=== PATIENT | female | born 1985 | race Caucasian/White ===

== ENCOUNTER 2018-01-26 20:42 | Emergency (ER) | payer SELFPAY ==
[2018-01-26] MEDS ORDERED: Sodium Chloride 0.9% 1,000 ML IV ONE (20:43)
--- NOTE | 2018-01-26 20:44 | EDM.PDOC ---
ED HPI GENERAL MEDICAL PROBLEM - General Stated Complaint: NUMBNESS OF THE BODY Time Seen by Provider: 01/26/18 20:44 Source of Information: Reports: Patient - History of Present Illness INITIAL COMMENTS - FREE TEXT/NARRATIVE: HISTORY AND PHYSICAL: History of present illness: [Patient presents with right unilateral headache consistent with previous migraine, she has a classic aura which includes sometimes blurred vision generally a zigzag Rainbolt pattern of facial and left-sided numbness of her whole body today she has had headache over the last 3 days increasing in severity today she rates maximally 7 out of 10 nonradiating she had experienced bilateral upper extremity numbness and tingling sensation which prompted her visit today No current visual aura or symptoms, numbness/tingling subsided shortly after arrival, headache is improved to a 1 or 2 out of 10 post treatment Stroke score was 0 on arrival however with the complaint of numbness nursing staff had initiated the stroke protocol CT was found to be negative Currently no fever nausea vomiting diarrhea constipation chest pain shortness of breath dizziness or palpitation no bowel or urine symptoms no visual symptoms no numbness stroke score remains 0 Review of systems: As per history of present illness and below otherwise all systems reviewed and negative. Past medical history: As per history of present illness and as reviewed below otherwise noncontributory. Surgical history: As per history of present illness and as reviewed below otherwise noncontributory. Social history: No reported history of drug or alcohol abuse. Family history: As per history of present illness and as reviewed below otherwise noncontributory. Physical exam: HEENT: Atraumatic, normocephalic, pupils reactive, negative for conjunctival pallor or scleral icterus, mucous membranes moist, throat clear, neck supple, nontender, trachea midline. Lungs: Clear to auscultation, breath sounds equal bilaterally, chest nontender. Heart: S1S2, regular, negative for clicks, rubs, or JVD. Abdomen: Soft, nondistended, nontender. Negative for masses or hepatosplenomegaly. Negative for costovertebral tenderness. Pelvis: Stable nontender. Genitourinary: Deferred. Rectal: Deferred. Extremities: Atraumatic, negative for cords or calf pain. Neurovascular unremarkable. Neuro: Awake, alert, oriented. Cranial nerves II through XII unremarkable. Cerebellum unremarkable. Motor and sensory unremarkable throughout. Exam nonfocal. Diagnostics: [CBC CMP UA hCG INR EKG Chest 1 view ] Therapeutics: [ 1 L normal saline bolus Zofran 8 mg IV Toradol 30 mg IV ] Description for Imitrex 100 mg #2 tabs one refill Follow-up and establish primary care Impression: [ migraine headache -improved/resolved] Definitive disposition and diagnosis as appropriate pending reevaluation and review of above. headache Pain Score (Numeric/FACES): 5 - Related Data Allergies Allergy/AdvReac Type Severity Reaction Status Date / Time No Known Allergies Allergy Verified 01/26/18 20:56 Home Meds: Home Meds Levothyroxine [Sythroid] 100 mcg PO DAILY 01/26/18 [History] Spironolactone [Aldactone] 100 mg PO DAILY 01/26/18 [History] metFORMIN HCl [Glucophage] 1,500 mg PO DAILY 01/26/18 [History] ED ROS GENERAL - Review of Systems Review Of Systems: See Below ED EXAM, GENERAL - Physical Exam Exam: See Below Course - Vital Signs Last Recorded V/S: Last Vital Signs Temp 97.2 F 01/26/18 20:45 Pulse 81 01/26/18 21:44 Resp 18 01/26/18 21:44 BP 117/64 01/26/18 21:44 Pulse Ox 100 01/26/18 21:44 - Orders/Labs/Meds Orders: Active Orders 24 hr Category Date Time Status EKG Documentation Completion [RC] STAT Care 01/26/18 20:44 Active Chest 1V Frontal [CR] Stat Exams 01/26/18 20:44 Taken Head wo Cont [CT] Stat Exams 01/26/18 20:43 Taken HCG QUALITATIVE,URINE [URCHEM] Stat Lab 01/26/18 20:43 Ordered UA W/MICROSCOPIC [URIN] Stat Lab 01/26/18 20:43 Ordered Labs: Laboratory Tests 01/26/18 01/26/18 01/26/18 Range/Units 20:38 20:38 20:38 WBC 12.50 H (4.0-11.0) K/uL RBC 4.55 (4.30-5.90) M/uL Hgb 12.2 (12.0-16.0) g/dL Hct 36.5 (36.0-46.0) % MCV 80.2 (80.0-98.0) fL MCH 26.8 L (27.0-32.0) pg MCHC 33.4 (31.0-37.0) g/dL RDW Std Deviation 39.2 (28.0-62.0) fl RDW Coeff of Paul 14 (11.0-15.0) % Plt Count 358 (150-400) K/uL MPV 9.60 (7.40-12.00) fL Neut % (Auto) 51.5 (48.0-80.0) % Lymph % (Auto) 39.4 (16.0-40.0) % [place] % (Auto) 6.0 (0.0-15.0) % Eos % (Auto) 2.9 (0.0-7.0) % Baso % (Auto) 0.2 (0.0-1.5) % Neut # (Auto) 6.4 H (1.4-5.7) K/uL Lymph # (Auto) 4.9 H (0.6-2.4) K/uL [place] # (Auto) 0.8 (0.0-0.8) K/uL Eos # (Auto) 0.4 (0.0-0.7) K/uL Baso # (Auto) 0.0 (0.0-0.1) K/uL Nucleated RBC % 0.0 /100WBC Nucleated RBCs # 0 K/uL INR 0.93 Sodium 139 (136-145) mmol/L Potassium 3.7 (3.5-5.1) mmol/L Chloride 102 (98-107) mmol/L Carbon Dioxide 26.6 (21.0-32.0) mmol/L BUN 13 (7.0-18.0) mg/dL Creatinine 0.9 (0.6-1.0) mg/dL Est Cr Clr Drug Dosing 80.75 mL/min Estimated GFR (MDRD) > 60.0 ml/min Glucose 100 (74-106) mg/dL Calcium 9.7 (8.5-10.1) mg/dL Total Bilirubin 0.2 (0.2-1.0) mg/dL AST 16 (15-37) IU/L ALT 18 (14-63) IU/L Alkaline Phosphatase 90 (46-116) U/L Total Protein 7.3 (6.4-8.2) g/dL Albumin 3.3 L (3.4-5.0) g/dL Globulin 4.0 H (2.0-3.5) g/dL Albumin/Globulin Ratio 0.8 L (1.3-2.8) Meds: Medications Discontinued Medications Generic Name Dose Route Start Last Admin Trade Name Stevenq PRN Reason Stop Dose Admin Sodium Chloride 1,000 mls @ 999 mls/hr 01/26/18 20:43 01/26/18 21:04 Normal Saline IV 01/26/18 21:43 999 mls/hr STAT ONE Administration Ketorolac Tromethamine 30 mg 01/26/18 21:14 01/26/18 21:42 Toradol IVPUSH 01/26/18 21:15 30 mg ONETIME ONE Administration Ondansetron HCl 8 mg 01/26/18 21:14 01/26/18 21:41 Zofran IVPUSH 01/26/18 21:15 8 mg ONETIME ONE Administration Departure - Departure Time of Disposition: 21:58 Disposition: Home, Self-Care 01 Condition: Good Clinical Impression: Migraine - Discharge Information Referrals: PCP,None [Primary Care Provider] - Additional Instructions: Medication as prescribed Return if symptoms persist or worsen Follow-up and establish care with primary care physician [facility] - Primary Care [address] [place] [address] The following information is given to patients seen in the emergency department who are being discharged to home. This information is to outline your options for follow-up care. We provide all patients seen in our emergency department with a follow-up referral. The need for follow-up, as well as the timing and circumstances, are variable depending upon the specifics of your emergency department visit. If you don't have a primary care physician on staff, we will provide you with a referral. We always advise you to contact your personal physician following an emergency department visit to inform them of the circumstance of the visit and for follow-up with them and/or the need for any referrals to a consulting specialist. The emergency department will also refer you to a specialist when appropriate. This referral assures that you have the opportunity for follow-up care with a specialist. All of these measure are taken in an effort to provide you with optimal care, which includes your follow-up. Under all circumstances we always encourage you to contact your private physician who remains a resource for coordinating your care. When calling for follow-up care, please make the office aware that this follow-up is from your recent emergency room visit. If for any reason you are refused follow-up, please contact the [facility] emergency department at and asked to speak to the emergency department charge nurse. - My Orders Last 24 Hours: My Active Orders 01/26/18 20:43 Head wo Cont [CT] Stat HCG QUALITATIVE,URINE [URCHEM] Stat UA W/MICROSCOPIC [URIN] Stat 01/26/18 20:44 EKG Documentation Completion [RC] STAT Chest 1V Frontal [CR] Stat - Assessment/Plan Last 24 Hours: My Active Orders 01/26/18 20:43 Head wo Cont [CT] Stat HCG QUALITATIVE,URINE [URCHEM] Stat UA W/MICROSCOPIC [URIN] Stat 01/26/18 20:44 EKG Documentation Completion [RC] STAT Chest 1V Frontal [CR] Stat
[2018-01-26 21:14] LABS: CHLORIDE,CL 102 mmol/L (98-107); SODIUM,NA 139 mmol/L (136-145)
[2018-01-26] MEDS ORDERED: Ketorolac 30 MG/ML SDV IVPUSH ONE (21:14)
[2018-01-26] MEDS ORDERED: Ondansetron 4 MG/2 ML SDV IVPUSH ONE (21:14)
--- NOTE | 2018-01-27 16:16 | CT ---
EXAM DATE: 01/26/18 PATIENT'S AGE: 32 Patient: YANCI HOLT Facility: [place], [place] Site . Site : 1985 Study: CT Head STROKE PROTOCOL [id number]/17/2018 8:51:17 PM Ordering Physician: Doctor Siu Final Report: INDICATION: Vision changes. Body numbness TECHNIQUE: CT Head without contrast. COMPARISON: None FINDINGS: CSF spaces: Within normal limits for age. Brain parenchyma: The rogers-white differentiation is normal. No sign of mass, hemorrhage, or midline shift. Skull base and calvarium: The visualized paranasal sinuses and mastoid air cells are clear. The visualized orbits are grossly unremarkable. No skull fractures. IMPRESSION: No acute intracranial abnormality. Dictated by Obi Galan MD @ 01/26/2018 9:03:24 PM Please note that all CT scans at this facility use dose modulation, iterative reconstruction, and/or weight-based dosing when appropriate to reduce radiation dose to as low as reasonably achievable. Dictated by: Obi Galan MD @ 01/26/2018 21:03:30 (Electronic Signature) Report Signed by Proxy. [facility] CENTER[facility]ario
--- NOTE | 2018-01-27 16:17 | CR ---
EXAM DATE: 01/26/18 PATIENT'S AGE: 32 Patient: YANCI HOLT Facility: [place], [place] Site . Site : 1985 Study: XRay Chest [id number]/17/2018 8:52:43 PM Ordering Physician: Doctor Siu Final Report: INDICATION: Chest pain. Shortness of breath. TECHNIQUE: Chest 1 view. AP upright. COMPARISON: None FINDINGS: Cardiovascular and mediastinum: Heart size and vasculature are normal in caliber and appearance. Mediastinum is within normal limits. Lungs and pleural space: Lungs are clear. No pleural effusion. No pneumothorax. Bones and soft tissues: No acute findings. IMPRESSION: No acute pulmonary process. Dictated by Obi Galan MD @ 01/26/2018 9:06:10 PM Dictated by: Obi Galan MD @ 01/26/2018 21:06:17 (Electronic Signature) Report Signed by Proxy. SONAL
== END 2018-01-26 22:10 | disposition home or self-care (01) ==
LOC: MW.ED 20:42
DX: G43.909 Migraine, unspecified, not intractable, without status migrainosus (principal)
CPT/HCPCS: 36415; 70450; 71045; 80053; 81001; 81025; 85025; 85610; 93005; 96361; 96374; 96375; 99285; J1885; J2405; J7040; 99283

== ENCOUNTER 2018-02-25 18:31 | Emergency (ER) | payer OTHER ==
[2018-02-25] MEDS ORDERED: Sodium Chloride 0.9% 10 ML Syringe FLUSH PRN (18:42)
[2018-02-25] MEDS ORDERED: Sodium Chloride 0.9% 2.5 ML Syringe FLUSH PRN (18:42)
--- NOTE | 2018-02-25 18:47 | EDM.PDOC ---
<Ana Maria Mejia - Last Filed: 02/25/18 20:05> ED HPI GENERAL MEDICAL PROBLEM - General Chief Complaint: Headache Stated Complaint: MIGRAINE Time Seen by Provider: 02/25/18 18:39 Source of Information: Reports: Patient, Old Records History Limitations: Reports: No Limitations - History of Present Illness INITIAL COMMENTS - FREE TEXT/NARRATIVE: HISTORY AND PHYSICAL: []32-year-old female presents with headache History of Present Illness: []Patient is quite confused and not answering questions appropriately Stating her head hurts Discussed with the her symptoms she does get an aura and have confusion with migraines. Patient took a sumatriptan and experienced difficulty breathing and chest tightness Review of Systems: As per history of present illness and below otherwise all systems reviewed and negative. Past medical history: As per history of present illness and as reviewed below otherwise noncontributory. Surgical history: As per history of present illness and as reviewed below otherwise noncontributory. Social history: No reported history of drug or alcohol abuse. Family history: As per history of present illness and as reviewed below otherwise noncontributory. Physical exam: alert female. Confused. HEENT: Atraumatic, normocehpalic, pupils reactive, negative for conjunctival pallor or scleral icterus, mucous membranes moist, throat clear, neck supple, nontender, trachea midline. Lungs: Clear to auscultation, breath sounds equal bilaterally, chest non tender. Heart: S1S2, regular, negative for clicks, rubs, or JVD. Abdomen: Soft, nondistended, nontender. Negative for masses or hepatossplenmegaly. Negative for costovertebral tenderness. Pelvis: Stable nontender. Genitourinary: Deferred. Rectal: Deferred Extremities: Atraumatic, negative for cords or calf pain. Neurovascular unremarkable. Neuro: Awake, alert, oriented. Cranial nerves II through XII unremarkable. Cerebellum unremarkable. Motor and sensory unremarkable throughout. Exam nonfocal. Have discussed this patient with Dr. Merchant a neurologist in [facility]. He feels that this patient needs an emergent MRI. Have discussed this with the patient and her , who is trying to talk to his insurance company about coverage. I have directed to the patient and her that time is of the essence. Patient has improved in her presents with mild confusion and aphasia Dr. Yarbrough has contacted emergency room physician Dr. Ramírez who has agreed to the recommendation of Dr. Hollins Diagnostics: []Head CT Therapeutics: []Benadryl 25 IV, Compazine 10 mg Toradol 30 mg, Ativan 1 mg Impression: []Atypical migraine Rule out CVA Plan: []Air flight to [facility] Definitive disposition and diagnosis as appropriate pending reevaluation and review of above. Onset: Today, Sudden Location: Reports: Head headache Pain Score (Numeric/FACES): 10 - Related Data Allergies Allergy/AdvReac Type Severity Reaction Status Date / Time No Known Allergies Allergy Verified 02/25/18 18:37 Home Meds: Home Meds Levothyroxine [Sythroid] 100 mcg PO DAILY 01/26/18 [History] Spironolactone [Aldactone] 100 mg PO DAILY 01/26/18 [History] metFORMIN HCl [Glucophage] 1,500 mg PO DAILY 01/26/18 [History] SUMAtriptan 100 mg PO Q2H 02/25/18 [History] Past Medical History HEENT History: Reports: None Cardiovascular History: Reports: Hypertension Respiratory History: Reports: None Gastrointestinal History: Reports: None Genitourinary History: Reports: None Musculoskeletal History: Reports: None Neurological History: Reports: Migraines Psychiatric History: Reports: None Endocrine/Metabolic History: Reports: Diabetes, Type II, Hypothyroidism Hematologic History: Reports: None Immunologic History: Reports: None Oncologic (Cancer) History: Reports: None Dermatologic History: Reports: None - Infectious Disease History Infectious Disease History: Reports: None - Past Surgical History Head Surgeries/Procedures: Reports: None Social & Family History - Family History Family Medical History: Noncontributory - Caffeine Use Caffeine Use: Reports: Coffee ED ROS GENERAL - Review of Systems Review Of Systems: ROS reveals no pertinent complaints other than HPI. - Physical Exam Exam: See Below (See dictation) EKG INTERPRETATION EKG Date: 02/25/18 Rhythm: NSR Rate (Beats/Min): 99 Comparison: No Change Course - Vital Signs Last Recorded V/S: Last Vital Signs Temp 36.4 C 02/25/18 18:38 Pulse 85 02/25/18 19:10 Resp 18 02/25/18 19:10 BP 136/88 02/25/18 19:10 Pulse Ox 97 02/25/18 19:10 - Orders/Labs/Meds Orders: Active Orders 24 hr Category Date Time Status Cardiac Monitoring [RC] . DIRECTED Care 02/25/18 18:42 Active EKG Documentation Completion [] STAT Care 02/25/18 18:42 Active Nursing Bedside Swallow Screen [RC] ASDIRECTED Care 02/25/18 18:42 Active Oxygen Therapy [RC] ASDIRECTED Care 02/25/18 18:42 Active Stroke Education, General [] Click to Edit Care 02/25/18 18:42 Active Head wo Cont [CT] Stat Exams 02/25/18 18:42 Taken Sodium Chloride 0.9% [Normal Saline] 1,000 ml Med 02/25/18 19:36 Active IV STAT Sodium Chloride 0.9% [Saline Flush] Med 02/25/18 18:42 Active 10 ml FLUSH ASDIRECTED PRN Sodium Chloride 0.9% [Saline Flush] Med 02/25/18 18:42 Active 2.5 ml FLUSH ASDIRECTED PRN Peripheral IV Insertion Adult [OM.PC] Stat Oth 02/25/18 18:42 Ordered Peripheral IV Insertion Adult [OM.PC] Stat Oth 02/25/18 18:42 Ordered Resuscitation Status Stat Resus Stat 02/25/18 18:42 Ordered Medication Orders Sodium Chloride (Normal Saline) 1,000 mls @ 999 mls/hr IV STAT ONE Stop: 02/25/18 20:36 Sodium Chloride (Saline Flush) 10 ml FLUSH ASDIRECTED PRN PRN Reason: Keep Vein Open Sodium Chloride (Saline Flush) 2.5 ml FLUSH ASDIRECTED PRN PRN Reason: Keep Vein Open Labs: Laboratory Tests 02/25/18 02/25/18 02/25/18 Range/Units 18:45 18:45 19:14 WBC 12.17 H (4.0-11.0) K/uL RBC 4.65 (4.30-5.90) M/uL Hgb 12.3 (12.0-16.0) g/dL Hct 37.0 (36.0-46.0) % MCV 79.6 L (80.0-98.0) fL MCH 26.5 L (27.0-32.0) pg MCHC 33.2 (31.0-37.0) g/dL RDW Std Deviation 39.8 (28.0-62.0) fl RDW Coeff of Paul 14 (11.0-15.0) % Plt Count 371 (150-400) K/uL MPV 9.80 (7.40-12.00) fL Neut % (Auto) 53.2 (48.0-80.0) % Lymph % (Auto) 39.0 (16.0-40.0) % [place] % (Auto) 5.6 (0.0-15.0) % Eos % (Auto) 1.9 (0.0-7.0) % Baso % (Auto) 0.3 (0.0-1.5) % Neut # (Auto) 6.5 H (1.4-5.7) K/uL Lymph # (Auto) 4.8 H (0.6-2.4) K/uL [place] # (Auto) 0.7 (0.0-0.8) K/uL Eos # (Auto) 0.2 (0.0-0.7) K/uL Baso # (Auto) 0.0 (0.0-0.1) K/uL Nucleated RBC % 0.0 /100WBC Nucleated RBCs # 0 K/uL INR 0.93 APTT 30.2 (18.6-31.3) SEC Sodium 137 (136-145) mmol/L Potassium 4.5 (3.5-5.1) mmol/L Chloride 101 (98-107) mmol/L Carbon Dioxide 27.2 (21.0-32.0) mmol/L BUN 12 (7.0-18.0) mg/dL Creatinine 0.7 (0.6-1.0) mg/dL Est Cr Clr Drug Dosing 103.82 mL/min Estimated GFR (MDRD) > 60.0 ml/min Glucose 88 (74-106) mg/dL Calcium 9.6 (8.5-10.1) mg/dL Total Bilirubin 0.3 (0.2-1.0) mg/dL AST 28 (15-37) IU/L ALT 19 (14-63) IU/L Alkaline Phosphatase 91 (46-116) U/L Troponin I < 0.050 (0.000-0.056) ng/mL Total Protein 8.0 (6.4-8.2) g/dL Albumin 3.4 (3.4-5.0) g/dL Globulin 4.6 H (2.0-3.5) g/dL Albumin/Globulin Ratio 0.7 L (1.3-2.8) TSH 3rd Generation 1.81 (0.36-3.74) uIU/mL Meds: Medications Generic Name Dose Route Start Last Admin Trade Name Freq PRN Reason Stop Dose Admin Sodium Chloride 1,000 mls @ 999 mls/hr 02/25/18 19:36 Normal Saline IV 02/25/18 20:36 STAT ONE Sodium Chloride 10 ml 02/25/18 18:42 Saline Flush FLUSH ASDIRECTED PRN Keep Vein Open Sodium Chloride 2.5 ml 02/25/18 18:42 Saline Flush FLUSH ASDIRECTED PRN Keep Vein Open Discontinued Medications Generic Name Dose Route Start Last Admin Trade Name Freq PRN Reason Stop Dose Admin Diphenhydramine HCl 25 mg 02/25/18 19:36 Benadryl IVPUSH 02/25/18 19:37 ONETIME ONE Ketorolac Tromethamine 30 mg 02/25/18 19:59 Toradol IVPUSH 02/25/18 20:00 ONETIME ONE Lorazepam 1 mg 02/25/18 19:36 Ativan IVPUSH 02/25/18 19:37 ONETIME ONE Departure - Departure Time of Disposition: 20:07 Disposition: DC/Tfer to Acute Hospital 02 Condition: Fair Clinical Impression: Atypical migraine - Discharge Information *PRESCRIPTION DRUG MONITORING PROGRAM REVIEWED*: Not Applicable *COPY OF PRESCRIPTION DRUG MONITORING REPORT IN PATIENT JONO: Not Applicable Referrals: PCP,None [Primary Care Provider] - Forms: ED Department Discharge <Phyllis Yarbrough - Last Filed: 02/25/18 20:13> ED HPI GENERAL MEDICAL PROBLEM - History of Present Illness INITIAL COMMENTS - FREE TEXT/NARRATIVE: Dr. Yarbrough dictating an addendum note as I have assisted in the care of this patient. On my personal interview of this patient and evaluation she tells me that all of these symptoms are very classic of her headache except the chest tightness and feeling a lump in her throat. Those symptoms started after taking the Imitrex. She says she does have issues with her speech and with this discomfort and currently her headache is all over. CT head and labs are all within normal limits and we have gone ahead and ordered medications for the pain and we did discuss this case with the neurologist at [facility] in [place], Dr. Merchant. Dr. Merchant feels that the patient needs an emergent MRI this evening and we are not capable of performing that here. The patient and are aware of the neurologist concerns and our concerns. Currently trying to arrange transfer but the does not want flight transfer until he gets approval from his insurance company. We keep stressing to him that this needs to occur in a timely fashion and he is trying to decide the plan. On my personal evaluation the patient is speaking in sentences and answering questions which is significantly different than her initial presentation. She is only complaining of the headache. We will continue with our management and arranged transfer to [facility] and [place]. Dr. Horner was contacted in the ER who accepts the patient for transfer. The and have agreed to flight transfer as time is of the essence and they are aware that they will get a emergent MRI at [place] and may or may not be admitted or discharged. They're comfortable with this.
[2018-02-25 19:20] LABS: CHLORIDE,CL 101 mmol/L (98-107); SODIUM,NA 137 mmol/L (136-145)
[2018-02-25] MEDS ORDERED: diphenhydrAMINE 50 MG/ML SDV IVPUSH ONE (19:36)
[2018-02-25] MEDS ORDERED: LORazepam 2 MG/ML SDV IVPUSH ONE (19:36)
[2018-02-25] MEDS ORDERED: Sodium Chloride 0.9% 1,000 ML IV ONE (19:36)
[2018-02-25] MEDS ORDERED: Ketorolac 30 MG/ML SDV IVPUSH ONE (19:59)
--- NOTE | 2018-02-26 09:47 | CT ---
EXAM DATE: 02/25/18 PATIENT'S AGE: 32 Patient: YANCI HOLT Facility: [place], [place] Site . Site : 1985 Study: CT Head STROKE PROTOCOL [id number]/17/2018 7:00:26 PM Ordering Physician: Doctor Siu Final Report: INDICATION: TECHNIQUE: Head CT without contrast. COMPARISON: January 26, 2018 FINDINGS: CSF spaces: Within normal limits for age. Brain parenchyma: There are nonspecific low attenuation white matter changes consistent with chronic microvascular disease. No sign of mass, hemorrhage, or midline shift. Skull base and calvarium: The visualized paranasal sinuses and mastoid air cells demonstrate no acute or significant findings. The visualized orbits are grossly unremarkable. No skull fractures. There is intracranial atherosclerosis. IMPRESSION: 1. No acute findings. 2. Nonspecific white matter disease, typical of chronic microvascular disease. 3. Findings discussed with YASMINE Mejia at 7:07 p.m. on February 25, 2018. Please note that all CT scans at this facility use dose modulation, iterative reconstruction, and/or weight-based dosing when appropriate to reduce radiation dose to as low as reasonably achievable. Dictated by Carlotta Rendon MD @ Feb 25 2018 7:07PM (Electronic Signature) Report Signed by Proxy. SONAL
== END 2018-02-25 20:25 ==
LOC: MW.ED 18:31
DX: G43.809 Other migraine, not intractable, without status migrainosus (principal); I10 Essential (primary) hypertension; Z79.899 Other long term (current) drug therapy
CPT/HCPCS: 36415; 70450; 80053; 84443; 84484; 85025; 85610; 85730; 93005; 96361; 96374; 96375; 99285; J1200; J1885; J2060; J7040

== ENCOUNTER 2018-12-11 12:18 | Emergency (ER) | payer OTHER ==
[2018-12-11] MEDS ORDERED: Sodium Chloride 0.9% 2.5 ML Syringe FLUSH PRN (12:39)
[2018-12-11] MEDS ORDERED: Ondansetron 4 MG/2 ML SDV IVPUSH ONE (12:39)
[2018-12-11] MEDS ORDERED: Sodium Chloride 0.9% 10 ML Syringe FLUSH PRN (12:39)
[2018-12-11] MEDS ORDERED: Sodium Chloride 0.9% 1,000 ML IV ONE (12:39)
[2018-12-11] MEDS ORDERED: Pantoprazole 40 MG Vial IVPUSH ONE (12:39)
[2018-12-11] MEDS ORDERED: Ketorolac 30 MG/ML SDV IVPUSH ONE (12:39)
--- NOTE | 2018-12-11 12:44 | EDM.PDOC ---
ED HPI GENERAL MEDICAL PROBLEM - General Chief Complaint: Abdominal Pain Stated Complaint: FLU Time Seen by Provider: 12/11/18 12:23 - History of Present Illness INITIAL COMMENTS - FREE TEXT/NARRATIVE: HISTORY AND PHYSICAL: History of present illness: The patient is a 33-year-old female with no GI history and no abdominal surgical history with a history of PCO S and hypothyroidism who presents with onset of nausea and vomiting at about 3:30 AM without any abdominal pain. Patient says she had a normal day yesterday and ate cheesecake last evening with strawberry topping and went to bed and woke up suddenly with the symptoms of the nausea and feeling like she has to vomit. She vomited the one time and had no diarrhea. She's vomited subsequently several times and cannot even keep water down. She tried to take a Tums but no other [id number] meds. She says she feels very gassy and bloated and this started before she went to bed last night and is continuing. She she also has some bilateral flank pain without any urinary complaints and denies . She says she has PCO S and cannot get but she has not had any intervention for contraception. The patient says she has felt feverish and weak and lightheaded but has not passed out or blacked out and has not had a documented temperature. She has no cough or upper respiratory symptoms. She has actually no abdominal complaints except for bloating, nausea. She has no midline back pain and no lower back pain and complains of the bilateral upper back pain/flank pain. This discomfort does not radiate. Review of systems: As per history of present illness and below otherwise all systems reviewed and negative. Past medical history: As per history of present illness and as reviewed below otherwise noncontributory. Surgical history: As per history of present illness and as reviewed below otherwise noncontributory. Social history: No reported history of drug or alcohol abuse. Family history: As per history of present illness and as reviewed below otherwise noncontributory. Physical exam: General: Well-developed well-nourished female who is nontoxic and vital signs were noted by me. Patient is mildly overweight. HEENT: Atraumatic, normocephalic, negative for conjunctival pallor or scleral icterus, mucous membranes moist, throat clear, neck supple, nontender, trachea midline. Lungs: Clear to auscultation, breath sounds equal bilaterally, chest nontender. Heart: S1S2, regular in rhythm no overt murmurs Abdomen: Soft, nondistended, nontender. Negative for masses or hepatosplenomegaly. There is some tympany on percussion and bowel sounds are actually hypoactive Pelvis: Stable nontender. Genitourinary: Deferred. Rectal: Deferred. Extremities: Atraumatic, negative for cords or calf pain. Neurovascular unremarkable. Neuro: Awake, alert, oriented. Cranial nerves II through XII unremarkable. Cerebellum unremarkable. Motor and sensory unremarkable throughout. Exam nonfocal. Back: There are no midline step-offs tenderness defects of the thoracic or lumbar spine and no posterior pelvis tenderness. There is some bilateral tenderness at the CVA area but no discrete CVA tenderness with Diagnostics: CBC CMP amylase lipase H. pylori UA with reflex UCG influenza Therapeutics: IV fluids Protonix Zofran Toradol Patient and at bedside are aware of all testing results and patient is feeling much improved. She no longer has nausea or any discomfort. She was able to get some sleep. I given her ice chips which she is taking eagerly and she is aware of dietary restrictions next 24 hours. I will give her Zofran for home. Impression: Nausea and vomiting improved Definitive disposition and diagnosis as appropriate pending reevaluation and review of above. generalized Pain Score (Numeric/FACES): 10 - Related Data Allergies Allergy/AdvReac Type Severity Reaction Status Date / Time No Known Allergies Allergy Verified 12/11/18 12:30 Home Meds: Home Meds Levothyroxine [Sythroid] 100 mcg PO DAILY 01/26/18 [History] Spironolactone [Aldactone] 100 mg PO DAILY 01/26/18 [History] metFORMIN HCl [Glucophage] 1,500 mg PO DAILY 01/26/18 [History] Citalopram Hydrobromide [Celexa] 40 mg PO DAILY 12/11/18 [History] Progesterone,Micronized [Progesterone] 300 mg PO DAILY 12/11/18 [History] Topiramate [Topamax] 75 mg PO DAILY 12/11/18 [History] Past Medical History HEENT History: Reports: None Cardiovascular History: Reports: Hypertension Respiratory History: Reports: None Gastrointestinal History: Reports: None Genitourinary History: Reports: None 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 Musculoskeletal History: Reports: None Neurological History: Reports: Migraines Psychiatric History: Reports: None Endocrine/Metabolic History: Reports: Hypothyroidism Hematologic History: Reports: None Immunologic History: Reports: None Oncologic (Cancer) History: Reports: None Dermatologic History: Reports: None - Infectious Disease History Infectious Disease History: Reports: None - Past Surgical History Head Surgeries/Procedures: Reports: None Social & Family History - Family History Family Medical History: Noncontributory - Tobacco Use Smoking Status *Q: Never Smoker - Caffeine Use Caffeine Use: Reports: Coffee - Recreational Drug Use Recreational Drug Use: No ED ROS GENERAL - Review of Systems Review Of Systems: ROS reveals no pertinent complaints other than HPI. ED EXAM, GENERAL - Physical Exam Exam: See Below (See dictation) Course - Vital Signs Last Recorded V/S: Last Vital Signs Temp 36.9 C 12/11/18 12:27 Pulse 105 H 12/11/18 12:27 Resp 16 12/11/18 12:27 BP 143/81 H 12/11/18 12:27 Pulse Ox 100 12/11/18 12:27 - Orders/Labs/Meds Orders: Active Orders 24 hr Category Date Time Status Sodium Chloride 0.9% [Saline Flush] Med 12/11/18 12:39 Active 10 ml FLUSH ASDIRECTED PRN Sodium Chloride 0.9% [Saline Flush] Med 12/11/18 12:39 Active 2.5 ml FLUSH ASDIRECTED PRN Saline Lock Insert [OM.PC] Stat Oth 12/11/18 12:38 Ordered Medication Orders Sodium Chloride (Saline Flush) 10 ml FLUSH ASDIRECTED PRN PRN Reason: Keep Vein Open Last Admin: 12/11/18 13:18 Dose: 10 ml Sodium Chloride (Saline Flush) 2.5 ml FLUSH ASDIRECTED PRN PRN Reason: Keep Vein Open Last Admin: 12/11/18 13:18 Dose: 2.5 ml Labs: Laboratory Tests 12/11/18 12/11/18 12/11/18 Range/Units 12:50 12:50 13:23 WBC 10.36 (4.0-11.0) K/uL RBC 4.94 (4.30-5.90) M/uL Hgb 13.1 (12.0-16.0) g/dL Hct 40.5 (36.0-46.0) % MCV 82.0 (80.0-98.0) fL MCH 26.5 L (27.0-32.0) pg MCHC 32.3 (31.0-37.0) g/dL RDW Std Deviation 42.2 (28.0-62.0) fl RDW Coeff of Paul 14 (11.0-15.0) % Plt Count 275 (150-400) K/uL MPV 10.00 (7.40-12.00) fL Neut % (Auto) 79.6 (48.0-80.0) % Lymph % (Auto) 13.3 L (16.0-40.0) % [place] % (Auto) 5.5 (0.0-15.0) % Eos % (Auto) 1.4 (0.0-7.0) % Baso % (Auto) 0.2 (0.0-1.5) % Neut # (Auto) 8.2 H (1.4-5.7) K/uL Lymph # (Auto) 1.4 (0.6-2.4) K/uL [place] # (Auto) 0.6 (0.0-0.8) K/uL Eos # (Auto) 0.2 (0.0-0.7) K/uL Baso # (Auto) 0.0 (0.0-0.1) K/uL Nucleated RBC % 0.0 /100WBC Nucleated RBCs # 0 K/uL Sodium (136-145) mmol/L Potassium (3.5-5.1) mmol/L Chloride (98-107) mmol/L Carbon Dioxide (21.0-32.0) mmol/L BUN (7.0-18.0) mg/dL Creatinine (0.6-1.0) mg/dL Est Cr Clr Drug Dosing mL/min Estimated GFR (MDRD) ml/min Glucose (74-106) mg/dL Calcium (8.5-10.1) mg/dL Total Bilirubin (0.2-1.0) mg/dL AST (15-37) IU/L ALT (14-63) IU/L Alkaline Phosphatase (46-116) U/L Total Protein (6.4-8.2) g/dL Albumin (3.4-5.0) g/dL Globulin (2.6-4.0) g/dL Albumin/Globulin Ratio (0.9-1.6) Amylase (25-115) U/L Lipase (73-393) U/L Urine Color YELLOW Urine Appearance CLEAR Urine pH 7.0 (5.0-8.0) Ur Specific [place] 1.015 (1.001-1.035) Urine Protein NEGATIVE (NEGATIVE) mg/dL Urine Glucose (UA) NEGATIVE (NEGATIVE) mg/dL Urine Ketones NEGATIVE (NEGATIVE) mg/dL Urine Occult Blood NEGATIVE (NEGATIVE) Urine Nitrite NEGATIVE (NEGATIVE) Urine Bilirubin NEGATIVE (NEGATIVE) Urine Urobilinogen 0.2 (<2.0) EU/dL Ur Leukocyte Esterase NEGATIVE (NEGATIVE) Urine HCG, Qual NEGATIVE (NEGATIVE) H. pylori IgG Antibody (NEG) 12/11/18 12/11/18 Range/Units 13:23 13:23 WBC (4.0-11.0) K/uL RBC (4.30-5.90) M/uL Hgb (12.0-16.0) g/dL Hct (36.0-46.0) % MCV (80.0-98.0) fL MCH (27.0-32.0) pg MCHC (31.0-37.0) g/dL RDW Std Deviation (28.0-62.0) fl RDW Coeff of Paul (11.0-15.0) % Plt Count (150-400) K/uL MPV (7.40-12.00) fL Neut % (Auto) (48.0-80.0) % Lymph % (Auto) (16.0-40.0) % [place] % (Auto) (0.0-15.0) % Eos % (Auto) (0.0-7.0) % Baso % (Auto) (0.0-1.5) % Neut # (Auto) (1.4-5.7) K/uL Lymph # (Auto) (0.6-2.4) K/uL [place] # (Auto) (0.0-0.8) K/uL Eos # (Auto) (0.0-0.7) K/uL Baso # (Auto) (0.0-0.1) K/uL Nucleated RBC % /100WBC Nucleated RBCs # K/uL Sodium 134 L (136-145) mmol/L Potassium 3.8 (3.5-5.1) mmol/L Chloride 100 (98-107) mmol/L Carbon Dioxide 20.4 L (21.0-32.0) mmol/L BUN 15 (7.0-18.0) mg/dL Creatinine 0.9 (0.6-1.0) mg/dL Est Cr Clr Drug Dosing 80.00 mL/min Estimated GFR (MDRD) > 60.0 ml/min Glucose 89 (74-106) mg/dL Calcium 9.2 (8.5-10.1) mg/dL Total Bilirubin 0.7 (0.2-1.0) mg/dL AST 16 (15-37) IU/L ALT 29 (14-63) IU/L Alkaline Phosphatase 75 (46-116) U/L Total Protein 7.4 (6.4-8.2) g/dL Albumin 3.7 (3.4-5.0) g/dL Globulin 3.7 (2.6-4.0) g/dL Albumin/Globulin Ratio 1.0 (0.9-1.6) Amylase 49 (25-115) U/L Lipase 140 (73-393) U/L Urine Color Urine Appearance Urine pH (5.0-8.0) Ur Specific [place] (1.001-1.035) Urine Protein (NEGATIVE) mg/dL Urine Glucose (UA) (NEGATIVE) mg/dL Urine Ketones (NEGATIVE) mg/dL Urine Occult Blood (NEGATIVE) Urine Nitrite (NEGATIVE) Urine Bilirubin (NEGATIVE) Urine Urobilinogen (<2.0) EU/dL Ur Leukocyte Esterase (NEGATIVE) Urine HCG, Qual (NEGATIVE) H. pylori IgG Antibody NEGATIVE (NEG) Meds: Medications Generic Name Dose Route Start Last Admin Trade Name Freq PRN Reason Stop Dose Admin Sodium Chloride 10 ml 12/11/18 12:39 12/11/18 13:18 Saline Flush FLUSH 10 ml ASDIRECTED PRN Administration Keep Vein Open Sodium Chloride 2.5 ml 12/11/18 12:39 12/11/18 13:18 Saline Flush FLUSH 2.5 ml ASDIRECTED PRN Administration Keep Vein Open Discontinued Medications Generic Name Dose Route Start Last Admin Trade Name Freq PRN Reason Stop Dose Admin Sodium Chloride 1,000 mls @ 999 mls/hr 12/11/18 12:39 12/11/18 13:16 Normal Saline IV 12/11/18 13:39 999 mls/hr STAT ONE Administration Ketorolac Tromethamine 30 mg 12/11/18 12:39 12/11/18 13:16 Toradol IVPUSH 12/11/18 12:40 30 mg ONETIME ONE Administration Ondansetron HCl 4 mg 12/11/18 12:39 12/11/18 13:16 Zofran IVPUSH 12/11/18 12:40 4 mg ONETIME ONE Administration Pantoprazole Sodium 80 mg 12/11/18 12:39 12/11/18 13:18 Protonix Iv IVPUSH 12/11/18 12:40 80 mg .BOLUS ONE Administration Departure - Departure Time of Disposition: 14:33 Disposition: Home, Self-Care 01 Condition: Good Clinical Impression: Nausea and vomiting Qualifiers: Vomiting type: unspecified Vomiting Intractability: non-intractable Qualified Code(s): R11.2 - Nausea with vomiting, unspecified - Discharge Information Referrals: PCP,None [Primary Care Provider] - Forms: ED Department Discharge Additional Instructions: The following information is given to patients seen in the emergency department who are being discharged to home. This information is to outline your options for follow-up care. We provide all patients seen in our emergency department with a follow-up referral. The need for follow-up, as well as the timing and circumstances, are variable depending upon the specifics of your emergency department visit. If you don't have a primary care physician on staff, we will provide you with a referral. We always advise you to contact your personal physician following an emergency department visit to inform them of the circumstance of the visit and for follow-up with them and/or the need for any referrals to a consulting specialist. The emergency department will also refer you to a specialist when appropriate. This referral assures that you have the opportunity for followup care with a specialist. All of these measure are taken in an effort to provide you with optimal care, which includes your followup. Under all circumstances we always encourage you to contact your private physician who remains a resource for coordinating your care. When calling for followup care, please make the office aware that this follow-up is from your recent emergency room visit. If for any reason you are refused follow-up, please contact the emergency department at and ask to speak to the emergency department charge nurse. [facility] Primary care- Internal Medicine and Family [address] [address] Push sips of clear liquids and ice chips as well as bites of bland food as we discussed. Use Zofran as prescribed and as needed for nausea and vomiting. Please call and schedule a follow-up appointment in the clinic with your provider or one of hours for reevaluation further care and return to ER as needed and as discussed - My Orders Last 24 Hours: My Active Orders 12/11/18 12:38 Saline Lock Insert [OM.PC] Stat 12/11/18 12:39 Sodium Chloride 0.9% [Saline Flush] 10 ml FLUSH ASDIRECTED PRN Sodium Chloride 0.9% [Saline Flush] 2.5 ml FLUSH ASDIRECTED PRN - Assessment/Plan Last 24 Hours: My Active Orders 12/11/18 12:38 Saline Lock Insert [OM.PC] Stat 12/11/18 12:39 Sodium Chloride 0.9% [Saline Flush] 10 ml FLUSH ASDIRECTED PRN Sodium Chloride 0.9% [Saline Flush] 2.5 ml FLUSH ASDIRECTED PRN
[2018-12-11 14:07] LABS: CHLORIDE,CL 100 mmol/L (98-107); SODIUM,NA 134 mmol/L (136-145)
== END 2018-12-11 14:55 | disposition home or self-care (01) ==
LOC: MW.ED 12:18
DX: R11.2 Nausea with vomiting, unspecified (principal); I10 Essential (primary) hypertension; E03.9 Hypothyroidism, unspecified; Z79.899 Other long term (current) drug therapy; Z79.84 Long term (current) use of oral hypoglycemic drugs
CPT/HCPCS: 36415; 80053; 81003; 81025; 82150; 83690; 85025; 86677; 87804; 96361; 96374; 96375; 99284; C9113; J1885; J2405; J7040

== ENCOUNTER 2019-06-09 12:22 | Emergency (ER) | payer OTHER ==
[2019-06-09] MEDS ORDERED: Bacitracin Oint 1 GM U/D Packet TOP ONE (12:43)
--- NOTE | 2019-06-09 12:45 | EDM.PDOC ---
ED HPI GENERAL MEDICAL PROBLEM - General Chief Complaint: Lower Extremity Injury/Pain Stated Complaint: SCRAPED KNEE Time Seen by Provider: 06/09/19 12:38 Source of Information: Reports: Patient History Limitations: Reports: No Limitations - History of Present Illness INITIAL COMMENTS - FREE TEXT/NARRATIVE: HISTORY AND PHYSICAL: History of present illness: Patient is a 34-year-old female presents to the ED with complaint of left knee injury. She states she fell in the [employer] parking lot on the ice about 1 hour ago landing on her left knee. she states she skinned her knee and she cleaned it out but is concerned with how deep the cut is. She declines need for x-ray and denies other injury. She is UTD on tetanus. Review of systems: As per history of present illness and below otherwise all systems reviewed and negative. Past medical history: As per history of present illness and as reviewed below otherwise noncontributory. Surgical history: As per history of present illness and as reviewed below otherwise noncontributory. Social history: No reported history of drug or alcohol abuse. Family history: As per history of present illness and as reviewed below otherwise noncontributory. Physical exam: General: Patient sitting comfortably in no acute distress and nontoxic appearing HEENT: Atraumatic, normocephalic, pupils reactive, negative for conjunctival pallor or scleral icterus, mucous membranes moist, throat clear, neck supple, nontender, trachea midline. No meningeal signs. Lungs: Clear to auscultation, breath sounds equal bilaterally, chest nontender. Heart: S1S2, regular, negative for clicks, rubs, or overt murmur. Abdomen: Soft, nondistended, nontender. Negative for masses or hepatosplenomegaly. Negative for costovertebral tenderness. No rigidity, rebound , guarding. Pelvis: Stable nontender. Genitourinary: Deferred. Rectal: Deferred. Extremities: There is a superficial 1cm flap of skin to the left knee. negative for cords or calf pain. Neurovascular unremarkable. Neuro: Awake, alert, oriented. Cranial nerves II through XII unremarkable. Cerebellum unremarkable. Motor and sensory unremarkable throughout. Exam nonfocal. Notes: Diagnostics: [] Therapeutics: [] Prescriptions: Impression: Left knee injury Plan: Keep area clean and dry as instructed Follow up with primary care provider Return to ED as needed as discussed Definitive disposition and diagnosis as appropriate pending reevaluation and review of above. left knee Pain Score (Numeric/FACES): 7 - Related Data Allergies Allergy/AdvReac Type Severity Reaction Status Date / Time No Known Allergies Allergy Verified 06/09/19 12:33 Home Meds: Home Meds Levothyroxine [Sythroid] 100 mcg PO DAILY 01/26/18 [History] Spironolactone [Aldactone] 100 mg PO DAILY 01/26/18 [History] metFORMIN HCl [Glucophage] 1,500 mg PO DAILY 01/26/18 [History] Citalopram Hydrobromide [Celexa] 40 mg PO DAILY 12/11/18 [History] Progesterone, Micronized [Progesterone] 300 mg PO DAILY 12/11/18 [History] Topiramate [Topamax] 75 mg PO DAILY 12/11/18 [History] Past Medical History - Past Health History Medical/Surgical History: Denies Medical/Surgical History HEENT History: Reports: None Cardiovascular History: Reports: Hypertension Respiratory History: Reports: None Gastrointestinal History: Reports: None Genitourinary History: Reports: None 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 Musculoskeletal History: Reports: None Neurological History: Reports: Migraines Psychiatric History: Reports: None Endocrine/Metabolic History: Reports: Hypothyroidism Hematologic History: Reports: None Immunologic History: Reports: None Oncologic (Cancer) History: Reports: None Dermatologic History: Reports: None - Infectious Disease History Infectious Disease History: Reports: None - Past Surgical History Head Surgeries/Procedures: Reports: None HEENT Surgical History: Reports: Adenoidectomy Social & Family History - Family History Family Medical History: Noncontributory - Tobacco Use Smoking Status *Q: Never Smoker - Caffeine Use Caffeine Use: Reports: Coffee - Recreational Drug Use Recreational Drug Use: No Review of Systems - Review of Systems Review Of Systems: ROS reveals no pertinent complaints other than HPI. ED EXAM, GENERAL - Physical Exam Exam: See Below (see dictation) Course - Vital Signs Last Recorded V/S: Last Vital Signs Temp 96.0 F 06/09/19 12:31 Pulse 87 06/09/19 12:31 Resp 18 06/09/19 12:31 BP 150/83 H 06/09/19 12:31 Pulse Ox 97 06/09/19 12:31 - Orders/Labs/Meds Meds: Medications Discontinued Medications Generic Name Dose Route Start Last Admin Trade Name Sangeeta PRN Reason Stop Dose Admin Bacitracin 1 dose 06/09/19 12:43 Bacitracin Oint 1 Gm TOP 06/09/19 12:44 ONETIME ONE Departure - Departure Time of Disposition: 12:53 Disposition: Home, Self-Care 01 Condition: Good Clinical Impression: Injury of knee, left - Discharge Information Referrals: PCP,None [Primary Care Provider] - Forms: ED Department Discharge Additional Instructions: The following information is given to patients seen in the emergency department who are being discharged to home. This information is to outline your options for follow-up care. We provide all patients seen in our emergency department with a follow-up referral. The need for follow-up, as well as the timing and circumstances, are variable depending upon the specifics of your emergency department visit. If you don't have a primary care physician on staff, we will provide you with a referral. We always advise you to contact your personal physician following an emergency department visit to inform them of the circumstance of the visit and for follow-up with them and/or the need for any referrals to a consulting specialist. The emergency department will also refer you to a specialist when appropriate. This referral assures that you have the opportunity for follow-up care with a specialist. All of these measure are taken in an effort to provide you with optimal care, which includes your follow-up. Under all circumstances we always encourage you to contact your private physician who remains a resource for coordinating your care. When calling for follow-up care, please make the office aware that this follow-up is from your recent emergency room visit. If for any reason you are refused follow-up, please contact the [facility] Emergency Department at and asked to speak to the emergency department charge nurse. [facility] [address] [place] [address] [facility] [address] [place] [id number] Keep area clean and dry as instructed Follow up with primary care provider Return to ED as needed as discussed
== END 2019-06-09 13:23 | disposition home or self-care (01) ==
LOC: MW.ED 12:22
DX: S80.912A Unspecified superficial injury of left knee, initial encounter (principal); I10 Essential (primary) hypertension; E03.9 Hypothyroidism, unspecified; G43.909 Migraine, unspecified, not intractable, without status migrainosus; Z79.890 Hormone replacement therapy; Z79.899 Other long term (current) drug therapy; W19.XXXA Unspecified fall, initial encounter; Y92.481 Parking lot as the place of occurrence of the external cause
CPT/HCPCS: 99282; 99283

== ENCOUNTER 2021-12-31 10:24 | Emergency (ER) | payer BC ==
[2021-12-31] MEDS ORDERED: Ketorolac 30 MG/ML SDV IVPUSH ONE (10:34)
[2021-12-31] MEDS ORDERED: Aspirin 81 MG Tab.Chew PO ONE (10:34)
[2021-12-31] MEDS ORDERED: Sodium Chloride 0.9% 1,000 ML IV ONE (10:34)
[2021-12-31 11:47] LABS: BLOOD UREA NITROGEN,BUN 12 mg/dL (7.0-18.0); CARBON DIOXIDE,CO2 21.3 mmol/L (21.0-32.0); CHLORIDE,CL 102 mmol/L (98-107); GLUCOSE RANDOM 125 mg/dL (74-106); POTASSIUM,K 4.1 mmol/L (3.5-5.1); SODIUM,NA 139 mmol/L (136-145)
[2021-12-31 11:50] LABS: CORONAVIRUS COVID-19 NAA NEGATIVE (NEGATIVE); INFLUENZA A NAA NEGATIVE (NEGATIVE); INFLUENZA B NAA NEGATIVE (NEGATIVE)
== END 2021-12-31 12:16 | disposition home or self-care (01) ==
LOC: MW.ED 10:24
DX: R07.81 Pleurodynia (principal); E03.9 Hypothyroidism, unspecified; I10 Essential (primary) hypertension; Z79.899 Other long term (current) drug therapy; Z79.84 Long term (current) use of oral hypoglycemic drugs; Z20.822 Contact with and (suspected) exposure to COVID-19
CPT/HCPCS: 0240U; 36415; 71045; 80053; 84484; 85025; 85379; 93005; 96374; 99284; A9270; J1885; J7030

== ENCOUNTER 2022-04-09 23:41 | Emergency (ER) | payer BC ==
[2022-04-10] MEDS ORDERED: Dextrose 5%-Lactated Ringers 1,000 ML IV STA (00:04)
[2022-04-10] MEDS ORDERED: Prochlorperazine 10 MG/2 ML SDV IVPUSH ONE (00:04)
[2022-04-10] MEDS ORDERED: diphenhydrAMINE 50 MG/ML SDV IVPUSH ONE (00:04)
== END 2022-04-10 00:15 | disposition left against medical advice (07) ==
LOC: MW.ED 23:41
DX: G43.909 Migraine, unspecified, not intractable, without status migrainosus (principal); E03.9 Hypothyroidism, unspecified; I10 Essential (primary) hypertension; Z79.899 Other long term (current) drug therapy; Z79.84 Long term (current) use of oral hypoglycemic drugs; Z86.16 Personal history of COVID-19; Z20.822 Contact with and (suspected) exposure to COVID-19
CPT/HCPCS: 99284; U0002